=== PATIENT | male | born 1960 | race Hispanic/Latino ===

== ENCOUNTER 2022-01-23 07:28 | Day surgery (SDC) | payer OTHER ==
[~2022-01-23] VITALS: Ht 165.1 cm; Wt 102.3 kg
[~2022-01-23 07:28] MED LIST: FLAX SEED OIL1 EACH PO; GLUCOSAMINE-CH1 EA48 PO; GLYBURIDE5 MG PO; LIPITOR10 MG PO; METFORMIN HCL500 MG PO; METOPROLOL TART75 MG PO; MULTI-DAY PLUS1 EACH PO; NAPROSYN500 MG PO; VITAMIN B-1250 MG PO
[2022-01-23] MEDS ORDERED: ADVIL200 M1 PO (07:55)
[2022-01-23] MEDS ORDERED: DICLOFENAC SODI75 MG PO (10:20)
[2022-01-23] MEDS ORDERED: OXYCODONE HCL5 MG PO (10:20)
[2022-01-23] MEDS ORDERED: GABAPENTIN600 MG PO (10:20)
[2022-01-23] MEDS ORDERED: CEFPROZIL500 MG PO (10:21)
--- NOTE | 2022-01-23 10:37 | NUR ---
01/23/22 1037 Roma Allen 1028 PATIENT ARRIVES TO PACU AWAKE, DENIES PAIN OR NAUSEA. RESP EVEN AND UNLABORED, ROOMAIR SATS >96%.
--- NOTE | 2022-01-23 11:02 | NUR ---
PT BACK TO DS ROOM ALERT AND AWAKE, DENIES PAIN OR NAUSEA. PT REPORTS SPINAL BLOCK STILL ABOVE LEVEL OF KNEE. PT NOT ABLE TO MOVE FOOT DUE TO SPINAL. CMS IN TACT. ON Q PUMP IN TACT. DAUGHTER AT BED SIDE. WARM BLANKETS GIVEN. CALL LIGHT WITHIN REACH. CRYO CUFF IN PLACE.
--- NOTE | 2022-01-23 11:51 | NUR ---
PT EATING SOUP AND SANDWITCH TOLERATES WELL. DENIES PAIN. SPINAL RESOLVED. CMS IN TACT. DRESSING CLEAN DRY AND INTACT. HIS AND DAUGHTER ARE AT BEDSIDE.
--- NOTE | 2022-01-23 12:26 | NUR ---
PT COMPLAINS OF PAIN TO THE BACK OF HIS KNEE, LEILANI ASBESTOS SIDING INSTALLER IN TO DO IPAC BLOCK TO PTS RT KNEE. PT TOLERATED WELL.
--- NOTE | 2022-01-23 13:18 | NUR ---
PT SLEEPING OFF AND ON. REPORTS PAIN IS BETTER.
--- NOTE | 2022-01-23 14:33 | NUR ---
1330 PT UP TO VOID AT BED SIDE USING URINAL, HE WAS ABLE TO VOID 400ML OF RED/ORANGE URINE. HELPED PT BACK INTO BED, CRYO CUFF REPLACED, SCD'S REPLACED. WARM BLANKETS GIVEN.
--- NOTE | 2022-01-23 14:35 | NUR ---
1400 PT WANTS TO GET DRESSED, IV SALINE LOCKED, PT WAS ABLE DRESS WITH HELP FROM . CRYO CUFF PLACED BACK ON RT KNEE. PT WAITING FOR PHYSICAL THERAPY
--- NOTE | 2022-01-23 14:43 | NUR ---
4209 PHYSICAL THERAPY WORKING WITH PT HE REPORTS PAIN IS 7/10 NOW AND IS REQUESTING PAIN MEDS. GABAPENTIN AND ALTRAM GIVEN.
--- NOTE | 2022-01-23 15:21 | NUR ---
1500 PT DISCHARGED BY PHYSICAL THERAPY, DR HAZEL CALLED AND NOTIFIED OK TO DC PER DR HAZEL, ORIGINAL IV WAS ACCEDENTLY PULLED OUT BY PT, HAD TO START NEW IV TO GIVE ABX. PT TOLERATED WELL.
--- NOTE | 2022-01-23 15:25 | NUR ---
1305 DRESSING CLEAN AND DRY. PT REPORTS PAIN 3/10 AND HE STATES HE FEELS READY TO GO HOME. AND DAUGHTER STATE THEY ARE COMFORTABLE WITH TAKING HIM HOME.
--- NOTE | 2022-01-23 17:38 | OR ---
[facility] [address], [place] [address] Signed DATE OF OPERATION: 01/23/2022 SURGEON: Kathia Olson MD PREOPERATIVE DIAGNOSIS: Severe degenerative joint disease, right knee. POSTOPERATIVE DIAGNOSIS: Severe degenerative joint disease, right knee. PROCEDURE PERFORMED: Right total knee with Rogelio. EYEGLASS FITTER: Cynthia Bowden PA-C. Cynthia was present and critical for all portions of procedure. ANESTHESIA: Spinal. BLOOD LOSS: 155 mL. IMPLANTS: Stephan Triathlon size 5 femur, 4 tibia, 9 mm polyethylene and 32 mm patella. BRIEF HISTORY: Ena is a 61-year-old gentleman with progressive worsening of osteoarthritis. We tried injections, bracing and anti-inflammatories without substantial relief. Risks and benefits of operative treatment were discussed with him. He elected to proceed. PROCEDURE IN DETAIL: Once consent was obtained, he was taken to the operating room. After adequate anesthesia, he was placed on the operating room table on a hip bump. The leg was then prepped and draped in a standard sterile fashion without a tourniquet. The knee was approached through standard anterior midline incision and was taken through the skin and subcutaneous tissue. Skin flaps were developed. The low mid vastus arthrotomy was performed and the infrapatellar fat pad was excised. The MCL was elevated with a sleeve around the posteromedial corner. The anterior horns of menisci were transected as we went. The ACL was transected. PCL was found to be intact. The checkpoints were placed Electronically Signed By: KATHIA OLSON MD 01/23/22 0398 PATIENT NAME: ENA BAEZ OPERATIVE REPORT DATE OF : 62 REPORT #: [id number] PHYSICIAN: KATHIA OLSON MD PCP: RICK STRONG MD REPORT IS CONFIDENTIAL AND NOT TO BE RELEASED WITHOUT AUTHORIZATION [facility] [address], [place] [address] Signed in the medial femoral condyle and proximal tibia. Computer rays were then placed in the medial femoral condyle percutaneously in the tibia. The leg was then registered with computer as were the fine anatomic points of the knee. Slight adjustments were made to the tibial and femoral components based on ligamentous laxity. The robot was then brought in and the four straight cuts were made with care taken to protect the surrounding soft tissue including the parapatellar tendon and MCL. The two angle cuts were made and any bone remnants were removed as were any osteophytes. The trials were then positioned. The knee did not need any posterior release. The knee was taken through range of motion from 0-130 with good stability throughout. The patella was cut, sized and drilled for a 32 mm patella. The distal femoral drill holes were made and the proximal tibia was finished using the keel punch and drill holes. The prosthesis was obtained and the tibia was impacted in position till set flush. The polyethylene was snapped into position and the femur was impacted. The knee was extended and nicely loaded and the patella was clamped. The knee was then taken through range of motion. The patella was noted to track very nicely. The knee was pulse lavaged at intervals throughout the procedure. A total of 3 L normal saline was used. There was a 500 mL IrriSept soak in the middle. Once this was completed, the On-Q pain pump was percutaneously placed into the adductor canal. The arthrotomy was then closed using #2 Stratafix. Prior to this, we did inject the periarticular soft tissues with 100 mL ropivacaine and Toradol mixture. The subcutaneous tissue was closed with 0 Quill and the skin with 3-0 Stratafix. The wound was Dermabonded and dressed with Acticoat 7 dressing, ABD, and Tomi wrap. The patient tolerated the procedure well. All sponge, needle, and instrument counts were correct. Kathia Olson MD BA/MODL /[id number] Copies: ~ Electronically Signed By: KATHIA OLSON MD 01/23/22 1738 PATIENT NAME: ENA BAEZ OPERATIVE REPORT DATE OF : 62 REPORT #: [id number] PHYSICIAN: KATHIA OLSON MD PCP: RICK STRONG MD REPORT IS CONFIDENTIAL AND NOT TO BE RELEASED WITHOUT AUTHORIZATION
== END 2022-01-23 15:15 | disposition home or self-care (01) ==
LOC: DS 07:28
PROVIDERS: ATTEND Specialist
PROC: 0SRC0J9 Replacement of Right Knee Joint with Synthetic Substitute, Cemented, Open Approach (ICD-10-PCS; principal; 2022-01-23 08:30)
DX: M17.11 Unilateral primary osteoarthritis, right knee (principal)
CPT/HCPCS: 01400; 64447; 76942; 97161; C1713; C1776; J0690; J1100; J2001; J2250; J2704; J2795; J3010; J7121